=== PATIENT | female | born 1950 | race Caucasian/White ===

== ENCOUNTER 2016-09-24 08:51 | Inpatient (IN) ==
[2016-09-19 13:56] LABS: Blood Urea Nitrogen 24 mg/dl (8-23)
[2016-09-19 14:00] LABS: Basophils # (Auto) 0 K/mcL (0.0-0.3); Basophils % (Auto) 0.5 % (0.0-2.0); Eosinophils # (Auto) 0.2 K/mcL (0.0-0.7); Eosinophils % (Auto) 2.7 % (0.0-7.0); Granulocytes % (Auto) 65.4 % (38.0-78.0); Lymphocytes # (Auto) 1.7 K/mcL (1.5-4.8); Lymphocytes % (Auto) 23.6 % (15.5-49.0); Mean Cell Volume 88.8 fL (80.0-100.0); Mean Corpuscular HGB Conc 33.2 g/dL (31.0-36.0); Mean Corpuscular Hemoglobin 29.5 pg (26.0-34.0); Monocytes # (Auto) 0.6 K/mcL (0.1-0.9); Monocytes % (Auto) 7.8 % (1.0-9.0); Platelet Count 284 K/mcL (140-440); RBC 4.43 M/mcL (4.00-5.20)
[2016-09-19 14:40] LABS: Appearance,Urine HAZY; Bilirubin,Urine NEG (NEG); Color,Urine YELLOW; Glucose,Urine (UA) NEGATIVE (NEG); Leukocyte Esterase,Urine NEG /uL (NEG); Nitrate,Urine NEG (NEG); Protein,Urine NEG (NEG); Specific Gravity,Urine 1.016 (1.000-1.035); Urine Blood NEG mg/dL (<0.03); Urobilinogen,Urine NEG (NEG)
[~2016-09-24 08:51] MED LIST: ACETAMINOPHEN 500 MG TABLET PO SCH; CELECOXIB 200 MG CAPSULE PO SCH; KETOROLAC 30 MG, ROPIVACAINE HCL/PF 49.5 ML, EPINEPHrine 0.5 MG, 0.9 % SODIUM CHLORIDE ... IJ SCH; PREGABALIN 150 MG CAPSULE PO SCH; ceFAZolin 1 GM VIAL IV SCH; oxyCODONE 10 MG TAB.ER.12H PO SCH
[2016-09-24] MEDS ORDERED: 0.9 % SODIUM CHLORIDE 250 ML IV SCH (09:00)
[2016-09-24] MEDS ORDERED: GENTAMICIN SULFATE 800 MG/20 ML VIAL IR ONE (11:04)
[2016-09-24] MEDS ORDERED: MIDAZOLAM 5 MG/5 ML VIAL IV ONE (11:15)
[2016-09-24] MEDS ORDERED: ONDANSETRON 4 MG/2 ML VIAL IV ONE (11:15)
[2016-09-24] MEDS ORDERED: PHENYLEPHRINE 10 MG/ML VIAL IV ONE (11:15)
[2016-09-24] MEDS ORDERED: DEXAMETHASONE 10 MG/ML VIAL IV ONE (11:15)
[2016-09-24] MEDS ORDERED: ROPIVACAINE HCL/PF 30 ML VIAL IJ ONE (11:15)
[2016-09-24] MEDS ORDERED: TRANEXAMIC ACID 1,000 MG/10 ML VIAL IV ONE (11:15)
[2016-09-24] MEDS ORDERED: PROPOFOL 200 MG/20 ML VIAL IV ONE (11:15)
[2016-09-24] MEDS ORDERED: LIDOCAINE HCL/PF 100 MG/5 ML SYRINGE IV ONE (11:15)
[2016-09-24] MEDS ORDERED: fentaNYL 100 MCG/2 ML VIAL IV PRN (12:53)
[2016-09-24] MEDS ORDERED: FLUMAZENIL 0.1 MG/ML ML IV PRN (12:53)
[2016-09-24] MEDS ORDERED: BENZOCAINE/MENTHOL 1 LOZENGE PO PRN ×2 (12:53→13:12)
[2016-09-24] MEDS ORDERED: ATROPINE SULFATE 0.4 MG/ML VIAL IV PRN (12:53)
[2016-09-24] MEDS ORDERED: IPRATROPIUM/ALBUTEROL 3 ML AMPUL.NEB NEB PRN (12:53)
[2016-09-24] MEDS ORDERED: METOPROLOL TARTRATE 5 MG/5 ML VIAL IV PRN (12:53)
[2016-09-24] MEDS ORDERED: NALOXONE HCL 0.4 MG/ML VIAL IV PRN (12:53)
[2016-09-24] MEDS ORDERED: METHOCARBAMOL 1,000 MG/10 ML VIAL IV PRN (12:53)
[2016-09-24] MEDS ORDERED: ONDANSETRON 4 MG/2 ML VIAL IV PRN ×2 (12:53→13:12)
[2016-09-24] MEDS ORDERED: HYDROmorphone 2 MG/ML SYRINGE IV PRN ×2 (12:53→13:12)
[2016-09-24] MEDS ORDERED: diphenhydrAMINE 50 MG/ML VIAL IV PRN (12:53)
[2016-09-24] MEDS ORDERED: ePHEDrine 50 MG/ML AMPUL IV PRN (12:53)
[2016-09-24] MEDS ORDERED: MEPERIDINE 25 MG/ML SYRINGE IV PRN (12:53)
[2016-09-24] MEDS ORDERED: PROMETHAZINE 25 MG/ML VIAL IV PRN (12:53)
[2016-09-24] MEDS ORDERED: LACTATED RINGERS 1,000 ML IV SCH (13:00)
[2016-09-24] MEDS ORDERED: POLYETHYLENE GLYCOL 3350 17 GM PACKET PO PRN (13:12)
[2016-09-24] MEDS ORDERED: BISACODYL 10 MG SUPP.RECT PR PRN (13:12)
[2016-09-24] MEDS ORDERED: FLEETS ADULT ENEMA PR PRN (13:12)
[2016-09-24] MEDS ORDERED: MAGNESIUM HYDROXIDE 30 ML ORAL.SUSP PO PRN (13:12)
[2016-09-24] MEDS ORDERED: ACETAMINOPHEN 325 MG TABLET PO PRN (13:12)
[2016-09-24] MEDS ORDERED: TRANEXAMIC ACID 1,000 MG/10 ML VIAL IV SCH (13:12)
--- NOTE | 2016-09-24 13:12 | Brief Operative Note ---
Date of procedure: 09/24/16 Pre-op diagnosis: left knee djd Post-op diagnosis: same Procedure: left total knee Grafts/Implants: Yes Anesthesia: GETA Complications Description: 09/24/16 13:11 none Surgeon: Jacob Alvarado Baker Bread: Eric Neri Estimated blood loss (cc): 20 Tourniquet Time (Minutes): 90 Specimens Removed/Pathology: none sent Condition: stable Disposition: PACU
--- NOTE | 2016-09-24 13:50 | Operative Note ---
DATE OF OPERATION: 09/24/2016 PREOPERATIVE DIAGNOSIS: Left knee degenerative arthritis of the lateral compartment and a lesser degree medial. POSTOPERATIVE DIAGNOSIS: Left knee degenerative arthritis of the lateral compartment and a lesser degree medial with even involvement of the patellofemoral groove. PROCEDURE: Left total knee arthroplasty with the LEROY robot cemented components. SURGEON: Jacob Alvarado MD. CHIEF FINANCIAL OFFICER: Eric Neri PA-C. ANESTHESIA: General LMA anesthesia. COMPLICATIONS: None. TOURNIQUET TIME: 90 minutes. DESCRIPTION OF PROCEDURE: The patient was brought to the operating room and put to sleep with general LMA anesthesia. Once asleep, the patient had the left leg sterilely prepped and draped in the usual sterile fashion. Once sterilely prepped, we made an anterior incision and a lateral approach to the knee. Initially we evaluated the lateral compartment which did show severe arthritis of the lateral compartment. The patella had a small fissure in the inferior third, and the medial compartment had a full-thickness lesion. With these findings, we proceeded with a total knee arthroplasty using the LEROY robot. We re-templated the knee using the computer. Once this was done, we placed pins superior and inferior to the knee. We registered the hip center of rotation, medial and lateral malleoli. We registered intra-articular pins and 30 points on the femur and tibia. We then balanced the knee with varus valgus stress at 23 mm. We raised the implant for an 11 component. Once repositioned the implants and set rotation to set the stability of the knee, we irrigated thoroughly. We then continued with a total knee from the lateral approach. We made our distal femoral cut using the robot after it was registered. We made our posterior chamfer cut and anterior and posterior cuts with an anterior chamfer cut. These bony fragments were removed. The robot was then brought in and made the tibial cut. Excellent cuts. We then removed the remnants of the meniscus and spurs posteriorly. We tapped into place the tibial baseplate with rotation set by the robot, same with the femur. This was tapped into place and seemed to fit very well with an 11. We irrigated and prepared the patella. The total thickness was about 19 mm. This was cut to 12 mm in thickness, and then cemented into place a 33 mm patellar button. We kept all bone intact because of the thinness of the patella. We irrigated thoroughly and then took the knee through range of motion. This seemed to track very well. We then cemented into place the above-mentioned sizes with an 11 mm poly. Excess cement was removed. Posterior cruciate ligament was preserved. We did preserve also as much bone on the patella. The patellar component was cemented. Extra bone was removed. Tourniquet deflated at 90 minutes. Once the cement was dried at 45 degrees, we reinspected the knee for any loose pieces of cement and irrigated thoroughly. We closed the vastus lateralis approach with #2 FiberWire and a double-armed #2 Maxon. We closed the skin with 2-0 Vicryls and adhesive closure. The patient tolerated this well without complication. RBH:david Job ID: [id number] Doc ID: [id number] Jacob Alvarado MD
--- NOTE | 2016-09-24 15:19 | XRay Report ---
CLINICAL INFORMATION: Postop total knee prostheses COMPARISON: None. FINDINGS: Total knee prostheses is anatomically aligned. There are no osseous abnormalities. Periarticular soft tissue swelling and gas seen. IMPRESSION: Negative Interpreted and Authenticated by: Willy Torres 09/24/16
[2016-09-24] MEDS: HYDROcodone/APAP 10/325MG TABLET PO PRN ×2 (16:27→22:19)
[2016-09-24] MEDS: CALCIUM W/VIT D3 500 MG TABLET PO SCH ×2 (16:27→20:51)
[2016-09-24] MEDS: 0.45 % SODIUM CHLORIDE 1,000 ML IV SCH (16:30)
[2016-09-24] MEDS: 0.9 % SODIUM CHLORIDE 10 ML SYRINGE IV SCH (16:30)
[2016-09-24] MEDS: KETOROLAC 15 MG/ML VIAL IV SCH (17:16)
[2016-09-24] MEDS: ceFAZolin 1 GM VIAL IV SCH (19:11)
[2016-09-24] MEDS: DOCUSATE SODIUM 100 MG CAPSULE PO SCH (20:51)
[2016-09-24] MEDS: ASPIRIN 325 MG ENTERIC COATED TABLET PO SCH (20:51)
[2016-09-24] MEDS: SIMVASTATIN 10 MG TABLET PO SCH (20:51)
[2016-09-24] MEDS: SENNOSIDES 1 TABLET PO SCH (20:51)
[2016-09-24] MEDS ORDERED: TEMAZEPAM 15 MG CAPSULE PO PRN (21:00)
[2016-09-25] MEDS: 0.45 % SODIUM CHLORIDE 1,000 ML IV SCH (00:29)
[2016-09-25] MEDS: 0.9 % SODIUM CHLORIDE 10 ML SYRINGE IV SCH ×5 (00:29→20:42)
[2016-09-25] MEDS: KETOROLAC 15 MG/ML VIAL IV SCH ×5 (00:30→23:40)
[2016-09-25] MEDS: ceFAZolin 1 GM VIAL IV SCH (03:30)
--- NOTE | 2016-09-25 07:46 | Orthopedic Progress Note ---
Subjective Patient information: Note initiated : 09/25/16 at 7:44 am Service Date, if different from initiated Date: [] Patient: Riana Moody 66 y/o F admitted on 09/24/16 for Left Lateral Uni Phil Knee. Chief Complaint: [Pt is stable this morning on post operative day 1 without any significant concerns or complaints. Patients vital signs have remained stable. Patients dressing is dry and exhibits a grossly intact neurovascular and neuromotor exam other than continued effect of neuro block resulting in weak to absent dorsiflexion on operative side. Patients 10 point ROS is otherwise negative. ] Objective Vital signs: Vital Signs Temp Pulse Resp BP BP Pulse Ox 09/25/16 07:39 98.7 F 97 H 20 118/63 94 09/25/16 07:02 20 94 09/25/16 04:00 98.1 F 78 20 105/63 94 09/25/16 00:00 97.7 F 97 H 20 119/62 95 09/24/16 20:00 97.3 F L 94 H 20 134/77 97 09/24/16 17:28 91 H 121/66 97 09/24/16 17:12 98 09/24/16 16:28 95 H 114/60 97 09/24/16 16:00 92 H 20 125/72 97 09/24/16 15:27 91 H 125/67 97 09/24/16 15:12 88 122/68 96 09/24/16 14:58 91 H 112/67 95 09/24/16 14:42 91 H 105/60 95 09/24/16 14:27 97.7 F 93 H 20 109/60 98 09/24/16 14:16 88 10 L 113/54 97 09/24/16 14:10 83 10 L 109/50 96 09/24/16 14:05 84 10 L 110/52 96 09/24/16 14:00 83 10 L 111/52 98 09/24/16 13:55 84 10 L 96/54 98 09/24/16 13:50 87 10 L 86/53 97 09/24/16 13:45 97.8 F 88 10 L 96/43 99 09/24/16 09:13 97.6 F 84 18 154/65 100 Intake and Output 09/24/16 09/25/16 09/25/16 21:59 05:59 13:59 Intake Total 940 / 940 2300 / 2300 Output Total 350 / 350 875 / 875 50 / 50 Balance 590 / 590 1425 / 1425 -50 / -50 Intake: IV 1000 / 1000 Sodium Chloride 0.45% 1, 1000 / 1000 000 ml @ 125 mls/hr IV . Q8H URI Rx#:[id number] Oral 940 / 940 1300 / 1300 Output: Urine Catheter Amount 350 / 350 Void Amount 875 / 875 50 / 50 Other: Meal Dinner Percent of Meal Consumed 50% Feeding Ability Assist with Tray Set Up Weight 209 lb Intake & Output: Intake & Output 09/24/16 09/25/16 09/25/16 21:59 05:59 13:59 Intake Total 940 / 940 2300 / 2300 Output Total 350 / 350 875 / 875 50 / 50 Balance 590 / 590 1425 / 1425 -50 / -50 Weight 209 lb Intake: IV 1000 / 1000 Sodium Chloride 0.45% 1, 1000 / 1000 000 ml @ 125 mls/hr IV . Q8H URI Rx#:[id number] Oral 940 / 940 1300 / 1300 Output: Urine Catheter Amount 350 / 350 Void Amount 875 / 875 50 / 50 Other: Meal Dinner Percent of Meal Consumed 50% Feeding Ability Assist with Tray Set Up Incision: Yes healing Incision clean and dry: Yes Dressing: Yes clean, Yes dry Weight bearing status: partial Neurological exam IM: Yes motor sensory deficit, Yes oriented X3 Extremities exam IM: Yes Foot pink and warm - Labs CBC & BMP: 09/25/16 03:47 09/19/16 11:22 Labs: 09/25/16 09/19/16 03:47 11:22 Hgb 13.0 Hct 32.8 L 39.3 Assessment and Plan (1) Hx of total knee arthroplasty Patient has been educated regarding wound care and dressings, follow up recommendations, and medication use. We will f/u with the patient within 2-3 weeks for wound check. Status: Acute
--- NOTE | 2016-09-25 07:48 | Discharge Summary ---
Ortho Discharge - TKA - Patient Instructions Diet: Regular Diet Activity: activity as tolerated, weight bearing as tolerated Total Knee Protocol: For Total Knee: Start ROM ROSEMARY with stationary bike or rocking chair. Work on gaining full extension of knee. Posterior dislocation precautions provided. Hip abductor strengthening and gait training instructions provided. Apply Cryocuff as instructed. Dressing Care: May shower in 2 days, Aquacel Ag - leave on for 5 days Additional Instructions: Do the exercises at home that Physical therapy gave you. Wear comfortable clothes . Take photo ID and insurance cards with you to physical therapy and to meat pickler any equipment such as crutches walker, toilet riser or C.P.M. Consider taking pain meds 45 min before physical therapy appointment. You have Dermabond (a dressing with a mesh-like appearance), leave open to air. You may start showering on post op day #2. The Dermabond dressing can get wet, do not scrub dressing. Pat dry. Use over the counter stool softeners or laxatives to avoid constipation associated with narcotic use. Use your Cryocuff or ice packs as directed, on for 20 minutes at a time throughout the day. This and elevation will help with pain and swelling. Call your physician for fever greater than 100.5 or pain not controlled by medication. Your prescriptions are with your discharge information. Some medications were electronically transmitted to your pharmacy of choice. - Problem Maintenance (1) Hx of total knee arthroplasty Status: Acute - Follow Up Plan Follow Up Appointments: Jacob Alvarado MD [Physician] - 10/09/16 8:40 am Disposition: Home, Self-Care Prognosis: Good Rehab Potential: Good I certify that the patient requires SNF services: No Overall status at discharge: patient is progressing back to baseline - Orders For Discharge Prescriptions: Aspirin [Ecotrin] 325 mg PO BID #60 tab.ec Docusate Sodium [Colace] 100 mg PO BID #60 capsule HYDROcodone/APAP 10/325MG [[place] 10/325Mg] 1 - 2 tab PO Q4HP PRN #75 tablet PRN Reason: Pain
[2016-09-25] MEDS: CALCIUM W/VIT D3 500 MG TABLET PO SCH ×3 (08:20→20:39)
[2016-09-25] MEDS: LISINOPRIL 10 MG TABLET PO SCH (08:20)
[2016-09-25] MEDS: amLODIPine 10 MG TABLET PO SCH (08:20)
[2016-09-25] MEDS: ASPIRIN 325 MG ENTERIC COATED TABLET PO SCH ×2 (08:20→20:39)
[2016-09-25] MEDS: MULTIVIT,THER IRON,CA,FA & MIN 1 TABLET PO SCH (08:20)
[2016-09-25] MEDS: DOCUSATE SODIUM 100 MG CAPSULE PO SCH ×2 (08:20→20:39)
[2016-09-25] MEDS ORDERED: UBIDECARENONE 300 MG PO SCH (09:00)
[2016-09-25] MEDS: HYDROcodone/APAP 10/325MG TABLET PO PRN ×2 (09:30→14:20)
[2016-09-25] MEDS: SENNOSIDES 1 TABLET PO SCH (20:39)
[2016-09-25] MEDS: SIMVASTATIN 10 MG TABLET PO SCH (20:42)
[2016-09-26] MEDS: HYDROcodone/APAP 10/325MG TABLET PO PRN ×3 (03:44→11:20)
[2016-09-26] MEDS: KETOROLAC 15 MG/ML VIAL IV SCH ×2 (05:19→11:04)
[2016-09-26] MEDS: 0.9 % SODIUM CHLORIDE 10 ML SYRINGE IV SCH (05:19)
[2016-09-26] MEDS: CALCIUM W/VIT D3 500 MG TABLET PO SCH (08:28)
[2016-09-26] MEDS: LISINOPRIL 10 MG TABLET PO SCH (08:29)
[2016-09-26] MEDS: MULTIVIT,THER IRON,CA,FA & MIN 1 TABLET PO SCH (08:29)
[2016-09-26] MEDS: DOCUSATE SODIUM 100 MG CAPSULE PO SCH (08:29)
[2016-09-26] MEDS: amLODIPine 10 MG TABLET PO SCH (08:29)
[2016-09-26] MEDS: ASPIRIN 325 MG ENTERIC COATED TABLET PO SCH (08:29)
== END 2016-09-26 11:20 | disposition home or self-care (01) | DRG 470 ==
LOC: SUR 08:51 → MEDSUR 14:50
PROVIDERS: ADMIT Orthopaedic Surgery; ATTEND Orthopaedic Surgery